=== PATIENT | male | born 1995 | race Caucasian/White ===

== ENCOUNTER 2017-08-22 03:59 | Emergency (ER) | payer OTHER ==
[2017-08-22] MEDS: IBUPROFEN 600 MG TAB PO (06:32)
== END 2017-08-22 07:29 | disposition home or self-care (01) ==
LOC: FTE 03:59
DX: S57.81XA Crushing injury of right forearm, initial encounter (principal); V89.2XXA Person injured in unspecified motor-vehicle accident, traffic, initial encounter
CPT/HCPCS: 73090; 73090-RT; 99283-25